=== PATIENT | male | born 1980 | race American Indian/Alaskan Native ===

== ENCOUNTER 2019-09-16 11:25 | Emergency (ER) | payer MEDICARE ==
[2019-09-16] MEDS ORDERED: ZIPRASIDONE MESYLATE 20 MG VIAL IM ONE (12:10)
[2019-09-16] MEDS ORDERED: LORazepam 2 MG/ML VIAL IM ONE (12:11)
--- NOTE | 2019-09-16 12:16 | Emergency Department Report ---
ED Psych HPI - General Chief Complaint: Psych Stated Complaint: MH Time Seen by Provider: 09/16/19 12:06 Source: EMS Mode of arrival: Ambulatory - History of Present Illness Initial Comments: This 39-year-old male with a history of bipolar ADHD schizophrenia who has been noncompliant with his medications presents to ED agitated, and delusional was brought in by EMS called by mother patient has been going around his neighbor knocking on neighbor's door today. Patient has been is generalized multiple times at [facility] and [facility] - Related Data Home Medications Medication Instructions Recorded Confirmed Last Taken Hydrocodone Bit/Acetaminophen 1 each PO Q6H PRN 08/27/13 01/15/14 08/27/13 08:00 [Lortab 10-500 mg] Lurasidone (Nf) [Latuda] 80 mg PO BID 08/27/13 01/15/14 Unknown Previous Rx's Medication Instructions Recorded Last Taken Type Cyclobenzaprine [Flexeril] 10 mg PO TID PRN #20 tablet 08/27/13 Unknown Rx Ibuprofen [Motrin 800 MG tab] 800 mg PO TID PRN #30 tablet 08/27/13 Unknown Rx Allergies Allergy/AdvReac Type Severity Reaction Status Date / Time No Known Allergies Allergy Verified 01/15/14 01:32 ED Review of Systems ROS: Stated complaint: MH Other details as noted in HPI Comment: All other systems reviewed and negative ED Past Medical Hx - Past Medical History Hx Hypertension: Yes Hx CVA: No Hx Diabetes: No Hx Renal Disease: No Hx Arthritis: No Hx Seizures: No Hx Psychiatric Treatment: Yes Hx Asthma: No Additional medical history: bipolar, Schizophrenia - Surgical History Hx Pacemaker: No Additional Surgical History: T & A, PE tubes - Social History Substance Use Type: None - Medications Home Medications: Home Medications Medication Instructions Recorded Confirmed Last Taken Type Cyclobenzaprine [Flexeril] 10 mg PO TID PRN #20 tablet 08/27/13 01/15/14 Unknown Rx Hydrocodone Bit/Acetaminophen 1 each PO Q6H PRN 08/27/13 01/15/14 08/27/13 08:00 History [Lortab 10-500 mg] Ibuprofen [Motrin 800 MG tab] 800 mg PO TID PRN #30 tablet 08/27/13 01/15/14 Unknown Rx Lurasidone (Nf) [Latuda] 80 mg PO BID 08/27/13 01/15/14 Unknown History ED Physical Exam - General Limitations: No Limitations General appearance: anxious, other (agitated) - Head Head exam: Present: atraumatic, normocephalic - Eye Eye exam: Present: normal appearance - ENT ENT exam: Present: mucous membranes moist - Neck Neck exam: Present: normal inspection - Respiratory Respiratory exam: Present: normal lung sounds bilaterally. Absent: respiratory distress - Cardiovascular Cardiovascular Exam: Present: regular rate, normal rhythm. Absent: systolic murmur, diastolic murmur, rubs, gallop - GI/Abdominal GI/Abdominal exam: Present: soft, normal bowel sounds - Rectal Rectal exam: Present: deferred - Extremities Exam Extremities exam: Present: normal inspection - Back Exam Back exam: Present: normal inspection - Neurological Exam Neurological exam: Present: alert, oriented X3 - Psychiatric Psychiatric exam: Present: agitated - Skin Skin exam: Present: warm, dry, intact, normal color. Absent: rash ED Course Vital Signs 09/16/19 12:45 Temperature 98.0 F Pulse Rate 98 H Respiratory 18 Rate Blood Pressure 125/81 [Left] O2 Sat by Pulse 100 Oximetry ED Medical Decision Making - Lab Data Result diagrams: 09/16/19 12:50 09/16/19 12:50 Laboratory Last Values WBC 9.7 K/mm3 (4.5-11.0) 09/16/19 12:50 RBC 5.02 M/mm3 (3.65-5.03) 09/16/19 12:50 Hgb 15.1 gm/dl (11.8-15.2) 09/16/19 12:50 Hct 45.4 % (35.5-45.6) 09/16/19 12:50 MCV 90 fl (84-94) 09/16/19 12:50 MCH 30 pg (28-32) 09/16/19 12:50 MCHC 33 % (32-34) 09/16/19 12:50 RDW 14.1 % (13.2-15.2) 09/16/19 12:50 Plt Count 156 K/mm3 (140-440) 09/16/19 12:50 Lymph % (Auto) 18.9 % (13.4-35.0) 09/16/19 12:50 [place] % (Auto) 10.0 % (0.0-7.3) H 09/16/19 12:50 Eos % (Auto) 0.9 % (0.0-4.3) 09/16/19 12:50 Baso % (Auto) 0.4 % (0.0-1.8) 09/16/19 12:50 Lymph # 1.8 K/mm3 (1.2-5.4) 09/16/19 12:50 [place] # 1.0 K/mm3 (0.0-0.8) H 09/16/19 12:50 Eos # 0.1 K/mm3 (0.0-0.4) 09/16/19 12:50 Baso # 0.0 K/mm3 (0.0-0.1) 09/16/19 12:50 Seg Neutrophils % 69.8 % (40.0-70.0) 09/16/19 12:50 Seg Neutrophils # 6.8 K/mm3 (1.8-7.7) 09/16/19 12:50 Sodium 143 mmol/L (137-145) 09/16/19 12:50 Potassium 3.0 mmol/L (3.6-5.0) L 09/16/19 12:50 Chloride 104.1 mmol/L (98-107) 09/16/19 12:50 Carbon Dioxide 24 mmol/L (22-30) 09/16/19 12:50 Anion Gap 18 mmol/L 09/16/19 12:50 BUN 13 mg/dL (9-20) 09/16/19 12:50 Creatinine 1.1 mg/dL (0.8-1.5) 09/16/19 12:50 Estimated GFR > 60 ml/min 09/16/19 12:50 BUN/Creatinine Ratio 12 % 09/16/19 12:50 Glucose 141 mg/dL (75-100) H 09/16/19 12:50 Calcium 9.2 mg/dL (8.4-10.2) 09/16/19 12:50 Salicylates < 0.3 mg/dL (2.8-20.0) L 09/16/19 12:50 Urine Opiates Screen Presumptive negative 09/16/19 13:57 Urine Methadone Screen Presumptive negative 09/16/19 13:57 Acetaminophen < 5.0 ug/mL (10.0-30.0) L 09/16/19 12:50 Ur Barbiturates Screen Presumptive negative 09/16/19 13:57 Ur Phencyclidine Scrn Presumptive negative 09/16/19 13:57 Ur Amphetamines Screen Presumptive negative 09/16/19 13:57 U Benzodiazepines Scrn Presumptive negative 09/16/19 13:57 Urine Cocaine Screen Presumptive negative 09/16/19 13:57 U Marijuana (THC) Screen Presumptive positive 09/16/19 13:57 Drugs of Abuse Note Disclamer 09/16/19 13:57 Plasma/Serum Alcohol < 0.01 % (0-0.07) 09/16/19 12:50 - Medical Decision Making This 39-year-old male with a history of schizophrenia and bipolar disorder his ear for delusions. Based on patient's. Behavior he was placed on 1013 and mental health consult was placed. Patient deeper into leave a few times upon arrival to the ED. Patient was agitated and walking around the whole ER screaming at security guards. Patient received 4 mg of Ativan and 2mg of Geodon. Critical care attestation.: If time is entered above; I have spent that time in minutes in the direct care of this critically ill patient, excluding procedure time. ED Disposition Clinical Impression: Bipolar 1 disorder, Violent behavior Condition: Stable Referrals: PRIMARY CARE, [Primary Care Provider] - 3-5 Days
[2019-09-16 13:12] LABS: Basophils % (Auto) 0.4 % (0.0-1.8); Eosinophils # (Auto) 0.1 K/mm3 (0.0-0.4); Eosinophils % (Auto) 0.9 % (0.0-4.3); Hematocrit 45.4 % (35.5-45.6); Hemoglobin 15.1 gm/dl (11.8-15.2); Lymphocytes # (Auto) 1.8 K/mm3 (1.2-5.4); Lymphocytes % (Auto) 18.9 % (13.4-35.0); Mean Corpuscular HGB Conc 33 % (32-34); Mean Corpuscular Volume 90 fl (84-94); Platelet Count 156 K/mm3 (140-440); Red Blood Count 5.02 M/mm3 (3.65-5.03); Red Cell Distribution Width 14.1 % (13.2-15.2)
[2019-09-16 13:26] LABS: BUN/Creatinine Ratio 12; Blood Urea Nitrogen 13 mg/dL (9-20); Calcium 9.2 mg/dL (8.4-10.2); Hemolysis Index 1
[2019-09-16 14:14] LABS: Amphetamine Screen,Urine PRESUMPTIVE NEGATIVE; Benzodiazepines Screen,Urine PRESUMPTIVE NEGATIVE; Cocaine Screen,Urine PRESUMPTIVE NEGATIVE; Methadone Screen,Urine PRESUMPTIVE NEGATIVE; Opiate Screen,Urine PRESUMPTIVE NEGATIVE
[2019-09-16 14:29] LABS: Cannabinoid Screen,Urine PRESUMPTIVE POSITIVE
--- NOTE | 2019-09-16 17:26 | Consultation ---
History of Present Illness - Reason for Consult Consult date: 09/16/19 Reason for consult: psychiatric evaluation - Chief Complaint Chief complaint: "I want to watch the game." - History of Present Psychiatric Illness This 39-year-old male with a history of bipolar ADHD schizophrenia who has been noncompliant with his medications presents to ED agitated, and delusional was brought in by EMS called by mother patient has been going around his neighbor knocking on neighbor's door today. Per the record, he has been admitted m [facility], and [facility] [place]. He was responding to internal stimuli and displayed psychomotor agitation with affective lability. He says latuda does not work for him and refuses geodon or risperdal. He also refuses seroquel. He says they cause side effects and agrees to something different. Medications and Allergies Allergies Allergy/AdvReac Type Severity Reaction Status Date / Time No Known Allergies Allergy Verified 01/15/14 01:32 Home Medications Medication Instructions Recorded Confirmed Last Taken Type Cyclobenzaprine [Flexeril] 10 mg PO TID PRN #20 tablet 08/27/13 01/15/14 Unknown Rx Hydrocodone Bit/Acetaminophen 1 each PO Q6H PRN 08/27/13 01/15/14 08/27/13 08:00 History [Lortab 10-500 mg] Ibuprofen [Motrin 800 MG tab] 800 mg PO TID PRN #30 tablet 08/27/13 01/15/14 Unknown Rx Lurasidone (Nf) [Latuda] 80 mg PO BID 08/27/13 01/15/14 Unknown History Past psychiatric history - Past Medical History Past Medical History: other (unable to gather history due to mental status) - past Psychiatric treatment and history Psych: Psychosis - Social History Social history: lives with family Mental Status Exam - Vital signs Last Vital Signs Temp 98.0 F 09/16/19 12:45 Pulse 98 H 09/16/19 12:45 Resp 18 09/16/19 12:45 BP 125/81 09/16/19 12:45 Pulse Ox 100 09/16/19 12:45 - Exam Orientation: time, place, person Affect: agitated Mood: congruent with affect Thought content: delusions Thought Process: Tangential, Disorganized Perceptions: auditory, hallucinations Speech: other (loud) Concentration: unable to pay attention Motor activity: agitated Level of consciousness: alert Memory: Intact Interaction: irritable Results Result Diagrams: 09/16/19 12:50 09/16/19 12:50 Abnormal lab results 09/16/19 09/16/19 09/16/19 Range/Units 12:50 12:50 12:50 [place] % (Auto) (0.0-7.3) % [place] # (0.0-0.8) K/mm3 Potassium 3.0 L (3.6-5.0) mmol/L Glucose 141 H (75-100) mg/dL Salicylates < 0.3 L (2.8-20.0) mg/dL Acetaminophen < 5.0 L (10.0-30.0) ug/mL 09/16/19 Range/Units 12:50 [place] % (Auto) 10.0 H (0.0-7.3) % [place] # 1.0 H (0.0-0.8) K/mm3 Potassium (3.6-5.0) mmol/L Glucose (75-100) mg/dL Salicylates (2.8-20.0) mg/dL Acetaminophen (10.0-30.0) ug/mL All other labs normal. Assessment and Plan Assessment and plan: Impression: psychosis unspecified hx of schizophrenia ddx: schizoaffective disorder, bipolar type, substance induced psychosis Recommendations: start abilify 10mg hs for psychosis. He is agreeable. risks and benefits discussed, including metabolic effects continue 1013 dispo: inpatient psychiatric facility will staff with Dr. Emanuel
[2019-09-16] MEDS ORDERED: POTASSIUM CHLORIDE ER 20 MEQ TAB PO ONE (17:50)
[2019-09-16] MEDS ORDERED: LORazepam 2 MG/ML VIAL IM PRN (18:19)
[2019-09-16] MEDS: ARIPiprazole 10 MG TAB PO SCH ×2 (22:13→22:14)
[2019-09-17 08:40] LABS: Bilirubin,Urine NEG (Negative); Blood,Urine NEG (Negative); Color,Urine Yellow (Yellow); Mucus,Urine 3+ /HPF; Urobilinogen,Urine < 2.0 mg/dL (<2.0)
[2019-09-17 09:24] VITALS: BP 155/98
--- NOTE | 2019-09-17 10:21 | Progress Note ---
Subjective - Reason for Consult Consult date: 09/17/19 Reason for consult: Psychiatry Follow-up - Chief Complaint Chief complaint: "I should have been left alone to watch the game" 39 y.o. AA male who presented to the ER for acute psychosis. Today the patient was irritable and tangent during the assessment. He is fixated about for being tin the ER and not being home so he cam watch the football. His answers to why he was brought to the ER wasn't logical. He appeared that he was responding to some type of stimuli throughout the interview. He denies SI/HI's and VH's. He would not confirm or deny AH's. The patient refused his medication last night. 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 Today the patient was paranoid during the assessment. DDx: Bipolar DO with psychosis, Substance Induced Psychsosis, Schizophrenia Recommendation/Plan: Continue 1013 and Abilify 10 mg PO daily for psychosis. Attempted to discuss possible metabolic side effects of Abilify with the patient. Dispo: The patient was accepted at [facility] for inpatient psy services. Will staff with Dr. Odin Emanuel.
== END 2019-09-17 11:15 ==
LOC: EEVIPCON 11:25 → ED 11:25
DX: F31.9 Bipolar disorder, unspecified (principal); F20.0 Paranoid schizophrenia; F29 Unspecified psychosis not due to a substance or known physiological condition; F12.10 Cannabis abuse, uncomplicated; I10 Essential (primary) hypertension
CPT/HCPCS: 36415; 80048; 80307; 81001; 85025; 96372; 99284; J2060; J3486; 80320; G0480